=== PATIENT | male | born 1945 | race Caucasian/White ===

== ENCOUNTER 2022-05-27 06:46 | Emergency (ER) | payer MEDICARE, OTHER ==
[~2022-05-27] VITALS: Ht 172.7 cm; Wt 68.2 kg
[~2022-05-27 06:46] MED LIST: ALEVE 220MG220 MG PO; B-12 100 MCG; CIPRO 500MG TA500 MG PO; FLAGYL500 MG PO; MULTI VITAMINS1 TAB PO; NORCO 325 MG-101 TAB PO; ZOFRAN 4MG T4 MG/TAB PO; ZYRTEC 10MG10 MG PO
[2022-05-27 07:16] VITALS: TEMP 97.6
[2022-05-27 07:44] LABS: COLLECTION METHOD IN
[2022-05-27 07:58] LABS: MUCOUS Present (NOT PRESENT); SQUAMOUS EPITHELIAL None Seen /hpf (0-10); URINE BACTERIA None Seen /hpf (NONE SEEN); URINE COLOR Yellow (YELLOW); URINE RBC 0-2 /hpf (0-2)
[2022-05-27 07:59] LABS: PH 5.5 (5-8); URINE APPEARANCE Clear (CLEAR/HAZY); URINE BLOOD Negative (NEGATIVE); URINE GLUCOSE Negative (NEGATIVE); URINE KETONE Negative (NEGATIVE); URINE NITRATE Negative (NEGATIVE); URINE PROTEIN(semi-quant) Negative (NEGATIVE); URINE UROBILINOGEN 0.2 (NEGATIVE)
[2022-05-27] MEDS ORDERED: PYRIDIUM 100MG100 MG PO (08:17)
[2022-05-27 08:21] VITALS: BP 154/84; PULSE 76
== END 2022-05-27 08:30 | disposition home or self-care (01) ==
LOC: COL.ER 06:46
PROVIDERS: Family Medicine
DX: N40.1 Benign prostatic hyperplasia with lower urinary tract symptoms (principal); R33.9 Retention of urine, unspecified